=== PATIENT | male | born 1995 | race Caucasian/White ===

== ENCOUNTER 2018-08-27 02:41 | Emergency (ER) | payer SELFPAY ==
[~2018-08-27] VITALS: Ht 170.2 cm; Wt 66.0 kg
[2018-08-27 02:44] VITALS: BP 126/78
== END 2018-08-27 03:58 | disposition left against medical advice (07) ==
LOC: ER 02:41
DX: Z53.21 Procedure and treatment not carried out due to patient leaving prior to being seen by health care provider (principal)
CPT/HCPCS: 93005